=== PATIENT | female | born 1990 | race Two or more races ===

== ENCOUNTER 2022-03-17 00:38 | Observation (INO) | payer SELFPAY ==
[~2022-03-17] VITALS: Ht 149.9 cm; Wt 71.7 kg
[2022-03-17] MEDS ORDERED: fentaNYL CITRATE 100 MCG/2 ML VL IV ONE (01:45)
[2022-03-17] MEDS ORDERED: LACTATED RINGER'S 1,000 ML IV ONE (01:45)
[2022-03-17 03:22] VITALS: BP 94/53
== END 2022-03-17 07:15 | disposition home or self-care (01) ==
LOC: LDRP 00:38
PROVIDERS: ADMIT Obstetrics & Gynecology; ATTEND Obstetrics & Gynecology
DX: O62.9 Abnormality of forces of labor, unspecified (principal); O99.891 Other specified diseases and conditions complicating pregnancy; M54.9 Dorsalgia, unspecified; Z3A.38 38 weeks gestation of pregnancy
CPT/HCPCS: 59025; 81002; 94760; 96374; G0378; J3010

== ENCOUNTER 2022-07-12 23:49 | Emergency (ER) | payer OTHER ==
[~2022-07-12] VITALS: Ht 149.9 cm; Wt 63.1 kg
[2022-07-13 00:18] VITALS: BP 111/66
== END 2022-07-13 06:10 | disposition left against medical advice (07) ==
LOC: ER 23:49
DX: R50.9 Fever, unspecified (principal); Z53.21 Procedure and treatment not carried out due to patient leaving prior to being seen by health care provider; Z20.822 Contact with and (suspected) exposure to COVID-19
CPT/HCPCS: 36415; 87426; 87804

== ENCOUNTER 2024-08-26 04:32 | Emergency (ER) | payer OTHER ==
[~2024-08-26] VITALS: Ht 149.9 cm; Wt 58.3 kg
[2024-08-26 04:38] VITALS: BP 122/77; PULSE 96; RESP 18; TEMP 98.7; O2SAT 96
[2024-08-26] MEDS ORDERED: AMOX875T4 PO (05:03)
[2024-08-26] MEDS ORDERED: ACET500T58 PO (05:03)
[2024-08-26] MEDS ORDERED: CARB6.5S59 OT (05:03)
--- NOTE | 2024-08-26 05:04 | ED.PDOC ---
Eye-HPI HPI Comments 33-YEAR-OLD FEMALE PRESENTS TO ER WITH COMPLAINTS OF LEFT-SIDED EARACHE X1 DAY. PATIENT REPORTS THAT SHE HAS BEEN EXPERIENCING LEFT-SIDED EARACHE PAIN, CONGESTION AND CLOGGED SENSATION TO LEFT EAR X1 DAY. SHE RATES HER CURRENT PAIN AN 8/10 TO LEFT EAR WITHOUT RADIATION. NOTES THAT SHE HAS BEEN TAKING IBUPROFEN FOR HER PAIN WITH SOME RELIEF. PATIENT PRESENTS TO ER AMBULATORY ON ARRIVAL, WITH STEADY GAIT, IN NO DISTRESS. DENIES FEVER, EAR DRAINAGE, DIZZINESS, NAUSEA/VOMITING, SKIN CHANGES, HEADACHE OR ANY FURTHER SYMPTOMS/COMPLAINTS Chief Complaint: Earache Time Seen by MD: 04:37 Primary Care Provider: UNKNOWN Reviewed Notes: Nurses Notes, Medications, Allergies Allergies: Coded Allergies: NO KNOWN ALLERGIES (Unverified , 03/17/22) Home Meds Active Scripts Acetaminophen (Acetaminophen) 500 Mg Tab, 500 MG PO Q4HPRN, #30 TAB 0 Refills Prov:RAMONA MCKEON 08/26/24 Amoxicillin & Pot Clavulanate (Amoxicillin/Potassium Cla) 875 Mg Tab, 1 TAB PO BID for 7 Days, #14 TAB 0 Refills Prov:RAMONA MCKEON 08/26/24 Carbamide Peroxide (Ear Drops Earwax Removal) 6.5 % Marina, 5 DROP OT BID for 4 Days, #1 BOTTLE 0 Refills Prov:RAMONA MCKEON 08/26/24 Information Source: Patient Mode of Arrival: Ambulatory Past Medical History PAST MEDICAL HISTORY: Depression Surgical History: Denies all surgeries Family History Family History: Unknown Social History Smoker: Non-Smoker Alcohol: Occasionally Drugs: Denies Drug Use Lives In: Home Constitutional: denies: chills, diaphoresis, fatigue, fever, malaise, sweats, weakness, others EENTM: reports: others ( STATED IN HPI) Respiratory: denies: cough, hemoptysis, orthopnea, SOB at rest, shortness of breath, SOB with excertion, stridor, wheezing, others Cardiovascular: denies: chest pain, dizzy spells, diaphoresis, Dyspnea on exertion, edema, irregular heart beat, left arm pain, lightheadedness, palpitations, PND, syncope, others Gastrointestinal: denies: abdomen distended, abdominal pain, blood streaked bowels, constipated, diarrhea, dysphagia, difficulty swallowing, hematemesis, melena, nausea, poor appetite, poor fluid intake, rectal bleeding, rectal pain, vomiting, others Genitourinary: denies: abnormal vagina bleeding, burning, dyspareunia, dysuria, flank pain, frequency, hematuria, incontinence, pain, , vagina discharge, urgency, others Neurological: denies: dizziness, fainting, headache, left sided numbness, left sided weakness, numbness, paresthesia, pre-existing deficit, right sided numbness, right sided weakness, seizure, speech problems, tingling, tremors, weakness, others Musculoskeletal: denies: back pain, gout, joint pain, joint swelling, muscle pain, muscle stiffness, neck pain, others Integumetry: denies: bruises, change in color, change in hair/nails, dryness, laceration, lesions, lumps, rash, wounds, others Allergic/Immunocompromised: denies: Difficulty Healing, Frequent Infections, Hives, Itching, others Hematologic/Lymphatic: denies: anemia, blood clots, easy bleeding, easy bruising, swollen glands, others Endocrine: denies: excessive hunger, excessive sweating, excessive thirst, excessive urination, flushing, intolerance to cold, intolerance to heat, unexplained weight gain, unexplained weight loss, others Psychiatric: denies: anxiety, bipolar disorder, depression, hopeless, panic disorder, schizophrenia, sleepless, suicidal, others Physical Exam General Appearance: No Apparent Distress HEENT: PERRL/EOMI, Pharynx Normal, Other (CERUMEN IMPACTION WITH MILD ERYTHEMA NOTED TO LEFT MIDDLE EAR CANAL, UNABLE TO VISUALIZE LEFT TM DUE TO CERUMEN IMPACTION, NO SKIN CHANGES/DRAINAGE TO LEFT EAR NOTED. 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 Was a procedure done?: No Sedation Sedation?: No EENT DIFF Eye: N/A Ear: Abrasion, Foreign Body, Otitis Externa, Perforation X-Ray, Labs, Meds, VS Vital Signs Date Time Temp Pulse Resp B/P (MAP) Pulse Ox O2 Delivery O2 Flow Rate FiO2 08/26/24 04:38 98.7 96 18 122/79 (93) 96 08/26/24 04:38 Room Air 08/26/24 04:38 98.7 96 18 122/77 (92) 96 98.7 ADVISED TO DRINK PLENTY OF FLUIDS ADVISED TO FOLLOW UP WITH PCP IN 1-2 DAYS PATIENT VERBALIZED UNDERSTANDING AND AGREEABLE WITH CURRENT PLAN OF CARE ADVISED TO RETURN TO ER IMMEDIATELY IF SYMPTOMS WORSEN Time of 1ST Reevaluation: 04:40 Reevaluation 1ST: N/A Patient Education/Counseling: Diagnosis, Treatment, Prognosis, Need For Follow Up Family Education/Counseling: No Family Present Departure 1 Departure Time of Disposition: 05:00 Impression: Primary Impression: Impacted cerumen of left ear Additional Impression: Otitis media of left ear Qualified Codes: H66.92 - Otitis media, unspecified, left ear Disposition: 01 HOME / SELF CARE / HOMELESS Condition: Stable e-Prescriptions Acetaminophen (Acetaminophen) 500 Mg Tab 500 MG PO Q4HPRN, #30 TAB 0 Refills Prov: RAMONA MCKEON 08/26/24 Amoxicillin & Pot Clavulanate (Amoxicillin/Potassium Cla) 875 Mg Tab 1 TAB PO BID for 7 Days, #14 TAB 0 Refills Prov: RAMONA MCEKON 08/26/24 Carbamide Peroxide (Ear Drops Earwax Removal) 6.5 % Marina 5 DROP OT BID for 4 Days, #1 BOTTLE 0 Refills Prov: RAMONA MCKEON 08/26/24 Critical Care Note Critical Care Time?: No Stability Stability form required: No Heart Score Heart Score: Heart Score Response (Comments) Value History N/A 0 EKG N/A 0 Age N/A 0 Risk Factors N/A 0 Troponin N/A 0 Total 0 RAMONA MCKEON Aug 26, 2024 05:04
== END 2024-08-26 05:06 | disposition home or self-care (01) ==
LOC: ER 04:32
DX: H61.22 Impacted cerumen, left ear (principal); H66.92 Otitis media, unspecified, left ear

== ENCOUNTER 2024-11-12 19:42 | Emergency (ER) | payer OTHER ==
[~2024-11-12] VITALS: Ht 149.9 cm; Wt 60.4 kg
[~2024-11-12 19:42] MED LIST: ACET500T58 PO; AMOX875T4 PO; CARB6.5S59 OT
[2024-11-12 20:35] VITALS: BP 122/76; PULSE 79; RESP 16; TEMP 98; O2SAT 98
[2024-11-12 20:36] LABS: Urine Amorphous Crystal FEW /hpf (None Seen); Urine Bacteria FEW /hpf (None Seen); Urine Blood TRACE /uL (Negative); Urine Budding Yeast OCCASIONAL /hpf (None Seen); Urine Clarity Turbid (Clear); Urine Color Dark-Yellow (Yellow); Urine Mucus FEW (None Seen); Urine Protein, UAD TRACE (Negative); Urine Specific Gravity 1.025 (1.001-1.035); Urine Squamous Epithelial Cell MOD /hpf (<5); Urine Urobilinogen 6 mg/dL (Negative); Urine WBC 2 /HPF (0-5); Urine pH 6.5 (5.0-9.0)
[2024-11-12] MEDS ORDERED: BACDST PO (21:17)
--- NOTE | 2024-11-12 21:18 | ED.PDOC ---
General HPI Comments 34-YEAR-OLD FEMALE PRESENTS TO ER WITH URINARY COMPLAINT X1 DAY. PATIENT STATES THAT SHE HAS BEEN EXPERIENCING BURNING WITH URINATION THAT STARTED THIS MORNING. STATES THAT SHE HAS HAD SIMILAR SYMPTOMS IN THE PAST RELATED TO A URINARY TRACT INFECTION AND NOTES THAT HER LAST UTI WAS "ONE YEAR AGO". DENIES ANY CURRENT PAIN AND REPORTS THAT SHE HAS BEEN TAKING [id number] AZO URINARY RELIEF WITHOUT IMPROVEMENT. PATIENT PRESENTS TO ER AMBULATORY ON ARRIVAL, WITH STEADY GAIT, IN NO DISTRESS WITH VITALS STABLE. DENIES FEVER, BODY ACHES, CHILLS, NAUSEA/VOMITING, ABDOMINAL/PELVIC PAIN, SKIN CHANGES, BACK/FLANK PAIN, FURTHER CHANGES IN URINATION OR ANY FURTHER SYMPTOMS/COMPLAINTS Chief Complaint: Urinary Time Seen by MD: 20:13 Primary Care Provider: UNKNOWN Reviewed notes: Nurses Notes, Medications, Allergies Allergies: Coded Allergies: NO KNOWN ALLERGIES (Unverified , 03/17/22) Home Meds Active Scripts Sulfamethoxazole W/Trimethopri (Bactrim Ds Tablet) 1 Tab Tb, 1 TAB PO BID for 7 Days, #14 TAB 0 Refills Prov:RAMONA MCKEON 11/12/24 Acetaminophen (Acetaminophen) 500 Mg Tab, 500 MG PO Q4HPRN, #30 TAB 0 Refills Prov:RAMONA MCKEON 11/12/24 Acetaminophen (Acetaminophen) 500 Mg Tab, 500 MG PO Q4HPRN, #30 TAB 0 Refills Prov:RAMONA MCKEON 08/26/24 Amoxicillin & Pot Clavulanate (Amoxicillin/Potassium Cla) 875 Mg Tab, 1 TAB PO BID for 7 Days, #14 TAB 0 Refills Prov:RAMONA MCKEON 08/26/24 Carbamide Peroxide (Ear Drops Earwax Removal) 6.5 % Marina, 5 DROP OT BID for 4 Days, #1 BOTTLE 0 Refills Prov:RAMONA MCKEON 08/26/24 Information Source: Patient Mode of Arrival: Ambulatory Past Medical History PAST MEDICAL HISTORY: Depression, UTI'S Surgical History: Denies all surgeries Family History Family History: Unknown Social History Smoker: Non-Smoker Alcohol: Occasionally Drugs: Denies Drug Use Lives In: Home Constitutional: denies: chills, diaphoresis, fatigue, fever, malaise, sweats, weakness, others EENTM: denies: blurred vision, double vision, ear bleeding, ear discharge, ear drainage, ear pain, ear ringing, eye pain, eye redness, hearing loss, mouth pain, mouth swelling, nasal discharge, nose bleeding, nose congestion, nose pain, photophobia, tearing, throat pain, throat swelling, voice changes, others Respiratory: denies: cough, hemoptysis, orthopnea, SOB at rest, shortness of breath, SOB with excertion, stridor, wheezing, others Cardiovascular: denies: chest pain, dizzy spells, diaphoresis, Dyspnea on exe rtion, edema, irregular heart beat, left arm pain, lightheadedness, palpitations, PND, syncope, others Gastrointestinal: denies: abdomen distended, abdominal pain, blood streaked bowels, constipated, diarrhea, dysphagia, difficulty swallowing, hematemesis, melena, nausea, poor appetite, poor fluid intake, rectal bleeding, rectal pain, vomiting, others Genitourinary: reports: others ( STATED IN HPI) Neurological: denies: dizziness, fainting, headache, left sided numbness, left sided weakness, numbness, paresthesia, pre-existing deficit, right sided numbness, right sided weakness, seizure, speech problems, tingling, tremors, weakness, others Musculoskeletal: denies: back pain, gout, joint pain, joint swelling, muscle pain, muscle stiffness, neck pain, others Integumetry: denies: bruises, change in color, change in hair/nails, dryness, laceration, lesions, lumps, rash, wounds, others Allergic/Immunocompromised: denies: Difficulty Healing, Frequent Infections, Hives, Itching, others Hematologic/Lymphatic: denies: anemia, blood clots, easy bleeding, easy bruising, swollen glands, others Endocrine: denies: excessive hunger, excessive sweating, excessive thirst, excessive urination, flushing, intolerance to cold, intolerance to heat, unexplained weight gain, unexplained weight loss, others Psychiatric: denies: anxiety, bipolar disorder, depression, hopeless, panic disorder, schizophrenia, sleepless, suicidal, others Physical Exam General Appearance: No Apparent Distress HEENT: PERRL/EOMI Neck: Full Range of Motion, Non-Tender, Normal Respiratory: Chest Non-Tender, Lungs Clear, No Accessory Muscle Use, No Respiratory Distress, Normal Breath Sounds Cardiovascular: No Murmur, No Gallop, Regular Rate/Rhythm Breast Exam: Deferred Gastrointestinal: Non Tender, No Pulsatile Mass, Soft Genitalia: Deferred Pelvic: Deferred Rectal: Deferred Extremities: Normal capillary refill, Normal range of motion Musculoskeletal : Extremity Location: Back (NO TTP TO BILATERAL FLANKS OR CVA TENDERNESS NOTED BILATERALLY) Neurologic: Alert, 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 Was a procedure done?: No Sedation Sedation?: No Differential Diagnosis Kidney stone (Female): Pyelonephritis Urinary Problem (Female): Intrauterine , Urinary retention, Vaginitis X-Ray, Labs, Meds, VS Vital Signs Date Time Temp Pulse Resp B/P (MAP) Pulse Ox O2 Delivery O2 Flow Rate FiO2 11/12/24 20:35 98.0 79 18 122/76 (91) 98 98.0 11/12/24 20:35 79 16 98 Room Air 11/12/24 20:07 98.0 79 16 122/76 (91) 98 98.0 Lab Test 11/12/24 19:54 Range/Units Urine Color Dark-yellow Yellow Urine Clarity Turbid H Clear Urine pH 6.5 5.0-9.0 Urine Specific [place] 1.025 1.001-1.035 Urine Protein Trace H Negative Urine Ketones Negative Negative Urine Blood Trace H Negative /uL Urine Nitrite 2+ H Negative Urine Bilirubin 2+ H Negative Urine Urobilinogen 6 Negative mg/dL Urine Leukocyte Esterase Negative Negative /uL Urine RBC 13 0 - 4 /hpf Urine Microscopic WBC 2 0-5 /HPF Urine Squamous Epithelial Cells Mod <5 /hpf Urine Amorphous Crystals Few None Seen /hpf Urine Bacteria Few H None Seen /hpf Urine Mucus Few None Seen Urine Yeast (Budding) Occasional None Seen /hpf Urine Glucose Normal Normal mg/dL Urine Test Negative Negative URINALYSIS REVIEWED-URINE NITRITES 2+, URINE BLOOD TRACE, URINE LEUKOCYTE ESTERASE NEGATIVE, URINE YEAST-OCCASIONAL URINE REVIEWED-NEGATIVE ROCEPHIN 1 G IM ORDERED DIFLUCAN 150 MG P.O. ORDERED ADVISED TO DRINK PLENTY OF FLUIDS ADVISED TO FOLLOW UP WITH PCP IN 1-2 DAYS PATIENT VERBALIZED UNDERSTANDING AND AGREEABLE WITH CURRENT PLAN OF CARE ADVISED TO RETURN TO ER IMMEDIATELY IF SYMPTOMS WORSEN Time of 1ST Reevaluation: 20:44 Reevaluation 1ST: N/A Patient Education/Counseling: Diagnosis, Treatment, Prognosis, Need For Follow Up Family Education/Counseling: No Family Present Departure 1 Departure Time of Disposition: 21:10 Impression: Primary Impression: UTI (urinary tract infection) Qualified Codes: N30.01 - Acute cystitis with hematuria Additional Impression: Yeast infection Disposition: HOME / SELF CARE / HOMELESS Condition: Stable e-Prescriptions Sulfamethoxazole W/Trimethopri (Bactrim Ds Tablet) 1 Tab Tb 1 TAB PO BID for 7 Days, #14 TAB 0 Refills Prov: RAMONA MCKEON 11/12/24 Acetaminophen (Acetaminophen) 500 Mg Tab 500 MG PO Q4HPRN, #30 TAB 0 Refills Prov: RAMONA MCKEON 11/12/24 Discharged With: Self Critical Care Note Critical Care Time?: No Stability Stability form required: No Heart Score Heart Score: Heart Score Response (Comments) Value History N/A 0 EKG N/A 0 Age N/A 0 Risk Factors N/A 0 Troponin N/A 0 Total 0 RAMONA MCKEON Nov 12, 2024 21:18
[2024-11-12] MEDS: cefTRIAXone SOD 1,000 MG VL IM ONE (21:24)
[2024-11-12] MEDS: FLUCONAZOLE 100 MG TAB PO ONE (21:24)
== END 2024-11-12 21:29 | disposition home or self-care (01) ==
LOC: ER 19:42
DX: N39.0 Urinary tract infection, site not specified (principal); B37.9 Candidiasis, unspecified; F32.9 Major depressive disorder, single episode, unspecified; Z79.899 Other long term (current) drug therapy
CPT/HCPCS: 81001; 81025; 96372; 99283; J0696